=== PATIENT | female | born 1990 | race Caucasian/White ===

== ENCOUNTER 2022-06-27 09:25 | Inpatient (IN) | payer BC, SELFPAY ==
[2022-06-27] VITALS (17 sets, daily range): BP systolic 94–123; BP diastolic 41–80; PULSE 64–109; RESP 15–18; TEMP 36–36.7; O2SAT 96–100; BMI 36.2
--- NOTE | 2022-06-27 10:11 | PCM.HP.BLA ---
History and Physical Date of Admission: 06/27/22 HPI: The patient is a 32 year old female presenting for pre-operative visit. She is scheduled for , for previous c/s on 06/27/22. Procedure discussed along with risks, benefits and complications. Other alternatives discussed for management. Consent form signed? Yes. ? ? PAST MEDICAL HISTORY PAST MEDICAL HISTORY Diagnosis Date ? Hypoglycemia ? ? as a teenager-1 episode ? ? PAST SURGICAL HISTORY PAST SURGICAL HISTORY Procedure Laterality Date ? DELIVERY ONLY ? 10/28/2014 ? , low transversex2 ? MIRENA ? 04/16/2019 ? contraception-removed ? ? ? CURRENT MEDICATIONS Current Outpatient Medications Medication Sig Dispense Refill ? pyridoxine, vitamin B6, (VITAMIN B-6) 50 mg tablet Take 1 tablet by mouth twice daily. ? ? ? VIT/IRON FUMARATE/FA ( ORAL) Take by mouth. ? ? ? No current facility-administered medications for this visit. ? ? ALLERGIES: Patient has no known allergies. ? PERSONAL HISTORY: SOCIAL HISTORY Social History ? Tobacco Use ? Smoking status: Never ? Smokeless tobacco: Never Vaping Use ? Vaping Use: Never used Substance Use Topics ? Alcohol use: No ? Drug use: No ? FAMILY HISTORY: FAMILY HISTORY FAMILY HISTORY Problem Relation Age of Onset ? Lymphoma Mother ? ? Heart Failure Father ? ? other (toxemia) Sister ? ? Suicide / Suicidal Behaviors Brother ? ? Suicide / Suicidal Behaviors Brother ? ? other (lung issue) Maternal Grandmother ? ? Heart Failure Maternal Grandfather ? ? Diabetes Maternal Grandfather ? ? Diabetes Paternal Grandfather ? ? Heart Failure Paternal Grandfather ? ? No Known Problems Daughter ? ? No Known Problems Daughter ? ? ? REVIEW OF SYMPTOMS: GENERAL: denies fevers or chills ENDOCRINOLOGY: has not been on steroids Cardiology : denies palpitations or chest pain Respiratory: denies SOB or cough Hematology: denies history of prolonged bleeding or easy bruising or VTE Allergy: Denies history of personal or family history of allergy to anesthesia ? PHYSICAL EXAMINATION: ? VITALS: Blood pressure 110/64, weight 189 lb 6.4 oz (85.9 kg), last menstrual period 09/15/2021. ? GENERAL: The patient is well nourished, well hydrated in no acute distress. , The patient is oriented to time, place, and person. NECK: Supple. No lynphadenopathy, normal thyroid, no thyromegaly. LUNGS: Clear to auscultation bilaterally. no wheezes, rhonchi or rales HEART: Regular rate and rhythm, Normal heart sounds, and No murmurs or gallops abd- soft, nontender, gravid ? IMPRESSION: 32 YOF w/ Estimated Date of Delivery: 06/22/22 ? PLAN: The risks/benefits/alternatives and personal involved for the planned c/s were reviewed with the patient. Her questions were answered to her satisfaction and she desires to proceed. Consent was signed. I reviewed with her postop instructions and expectations. ? ? I have reviewed and updated past medical and surgical history, medications and allergies
[2022-06-27] MEDS: Acetaminophen 500 MG Tablet 1000 MG PO ×3 (10:16→23:38)
[2022-06-27 10:34] LABS: Absolute Lymphocyte Count 1.87 X10^3/uL (0.83-4.51); Absolute Neutrophil Count 8.9 X10^3/uL (2.0-7.7); Basophil# 0.06 X10^3/uL; Basophil% 0.5 % (0-1); Eosinophil# 0.07 X10^3/uL; Eosinophils% 0.6 % (0-5); Hematocrit 36.3 % (37-47); Hemoglobin 12.1 g/dL (12.0-15.0); Lymphocyte # 1.87 X10^3/ul (0.83-4.51); Lymphocyte % 15.3 % (19-41); Mean Corp Hgb Conc 33.3 g/dL (32-36); Mean Corpuscular Hgb 30.2 pg (27.0-32.0); Mean Corpuscular Volume 90.5 fL (81-99); Mean Platelet Vol. 10.1 fl (6.2-12.0); Monocyte# 0.89 X10^3/uL; Monocyte% 7.3 % (0-10); NRBC Flagged by Analyzer 0 % (0-5); Neutrophil # 8.89 X10^3/uL (2.7-7.7); Neutrophil % 72.5 % (47-70); Platelet Count 233 K/mm3 (150-450); RBC Distribution Width CV 12.6 % (11.6-14.6); RBC Distribution Width SD 41.2 fl (35.1-43.9); Red Blood Count 4.01 M/mm3 (4.2-5.4); White Blood Count 12.2 K/mm3 (4.4-11.0)
[2022-06-27] MEDS: Lactated Ringers 1,000 ML 999 ML IV (10:35)
[2022-06-27] MEDS: Lactated Ringers 1,000 ML 150 ML IV (11:15)
[2022-06-27] MEDS: Sodium Citrate/Citric Acid 30 ML UDC PO (12:00)
[2022-06-27] MEDS: Cefazolin 2 GM in 0.9% Normal Saline 100 ML IV (12:06)
--- NOTE | 2022-06-27 12:52 | EX.PCM.OBRPT ---
Assessment & Plan (1) 40 weeks gestation of : (2) Previous delivery affecting : Maternal Data Information Final STEPHANIE: 06/22/22 Gestational age: 40 5/7 Details Operative Information Date of Procedure: 06/27/22 Pre-Operative Diagnosis: previous c/s Post-Operative Diagnosis: same Indications for : Repeat Elective Classification: Scheduled Procedure Type: low transverse Type of Anesthesia: Spinal Anesthesiologist: Adalid Jacobson Special Medications: duramorph Antibiotic Given: Ancef 2 grams IV x1 Drain: Villalta to straight drain Estimated Blood Loss: 700 Fluids Replaced: 1500 Procedure Start Time: 12:28 Procedure Stop Time: 13:09 Time of Delivery: 12:30 Findings Description of Procedure: The patient was taken to the operating room. She was prepped and draped in the dorsal supine position with a leftward tilt. A Pfannenstiel skin incision was made approximately 2 cm above the symphysis pubis and carried through to underlying layer fascia with the scalpel. The fascia was incised incised in the midline and extended laterally with the Ny scissors. The fascia was dissected off the rectus muscles with blunt and sharp dissection. The rectus muscles were in the midline and the peritoneum was entered bluntly. The peritoneal incision was stretched and the bladder blade was placed. The uterine incision was made in a low transverse fashion with the scalpel and extended superiorly and inferiorly with blunt dissection. The amniotic membranes were ruptured bluntly and clear amniotic fluid returned. The 's head was brought to the incision in the flexed position and delivered without difficulty. The remainder of the infant was delivered with gentle traction and fundal pressure in the standard fashion. The mouth and nares were bulb suctioned. The cord was clamped and cut as the was stimulated. Cord clamping was delayed. The was handed off to the waiting nursing staff. The placenta was delivered with fundal massage and gentle traction in the standard fashion. The uterus was exteriorized and cleared of all clots and debris. The cervix was dilated with a ring forcep. The uterine incision was closed with #1 Vicryl in a running locked fashion. A second layer of the same suture was used in an imbricating fashion. The incision was examined and was found to be hemostatic. The uterus was placed back into the peritoneal cavity and hemostasis was again confirmed. The rectus muscles were examined and any bleeding was Bovie cauterized. The parietal peritoneum and rectus muscles were closed en bloc with an 0 Vicryl running suture. The surgical teams outer gloves were then changed. The rectus fascia was examined and any bleeding was Bovie cauterized and the rectus fascia was closed with 1 Vicryl suture in a running standard fashion. The subcutaneous tissue was examining and any bleeding was Bovie cauterized. The subcutaneous tissue was reapproximated with 3-0 Vicryl suture. The skin was closed in a subcuticular fashion by the ALTERATIONS WORKROOM CLERK with me present in the labor and delivery suite. I performed the remainder of the procedure with assistance. All sponge, lap, and needle counts were correct. The patient was taken to her room for recovery in a stable condition. Presentation: Positive for Vertex Amniotic Membrane Rupture Type: Artificial Amniotic Fluid Description: Clear Placental Delivery Description: Expressed Placenta Disposition: [facility] Cord Vessel Description: 3 Vessels Cord Entanglement: None Infant A Gender: Male (1 minute): 9 (5 minute): 9 Delayed Cord Clamping: Yes Complications Complications: none Admit VTE Documentation VTE Present on Admission: No VTE Mechan Device Prophylaxis: SCD's VTE Pharm Prophylaxis Ordered: No Reason Prophylaxis Not Ordered: Procedure Not Indicated
[2022-06-27] MEDS: Oxytocin 15 Units/NS 250ml 15 UNITS/250 ML IV.SOLN 83 UNITS IV (13:35)
[2022-06-27] MEDS: Ketorolac 30 MG/ML Syringe IV ×2 (13:35→19:16)
[2022-06-27] MEDS: Lactated Ringers 1,000 ML 100 ML IV (16:38)
[2022-06-27] MEDS: Ondansetron 4 MG/2 ML Vial IV ×2 (17:05→20:55)
[2022-06-28] MEDS: 0.9% Saline Lock 10 ML Syringe IV (01:26)
[2022-06-28] MEDS: Ketorolac 30 MG/ML Syringe IV ×2 (01:27→07:41)
[2022-06-28 01:30] VITALS: PULSE 68; RESP 15; O2SAT 100
[2022-06-28 03:07] VITALS: BP 95/64; PULSE 63; RESP 15; TEMP 36.4; O2SAT 99
[2022-06-28 04:56] LABS: Hematocrit 31.9 % (37-47); Hemoglobin 10.5 g/dL (12.0-15.0); Mean Corp Hgb Conc 32.9 g/dL (32-36); Mean Corpuscular Volume 91.1 fL (81-99); Mean Platelet Vol. 10.2 fl (6.2-12.0); Platelet Count 216 K/mm3 (150-450); RBC Distribution Width CV 12.5 % (11.6-14.6); RBC Distribution Width SD 40.9 fl (35.1-43.9); White Blood Count 13.9 K/mm3 (4.4-11.0)
[2022-06-28] MEDS: Acetaminophen 500 MG Tablet 1000 MG PO ×3 (07:41→20:40)
--- NOTE | 2022-06-28 08:14 | PN_ITS ---
Subjective Subjective patient seen at bedside, doing well. Patient reports good pain control. lochia mild. reports no flatus yet. denies N/V , tolerating regular diet. ambulating. Objective Data Objective Data Vital Signs: Vital Signs Temp Pulse Resp BP Pulse Ox O2 Del Method 97.6 F L 63 15 95/64 99 Room Air 06/28/22 03:07 06/28/22 03:07 06/28/22 03:07 06/28/22 03:07 06/28/22 03:07 06/28/22 03:07 Oxygen Delivery Method Room Air Weight: 87 kg Body Mass Index (BMI) 36.2 Intake & Output: Intake and Output for Last 24 Hours 06/26/22 06/27/22 06/28/22 23:59 23:59 23:59 Intake Total 1425.95 / 1425.95 881.67 / 881.67 Output Total 1525 / 1525 500 / 500 Balance -99.05 / -99.05 381.67 / 381.67 Lab / Micro Data Result Diagrams: 06/28/22 04:40 Labs: Laboratory Results - last 24 hr 06/27/22 10:10: WBC 12.2 H, RBC 4.01 L, Hgb 12.1, Hct 36.3 L, MCV 90.5, MCH 30.2, MCHC 33.3, RDW Std Deviation 41.2, RDW Coeff of Víctor 12.6, Plt Count 233, MPV 10.1, Immature Gran % (Auto) 3.800 H, Neut % (Auto) 72.5 H, Lymph % (Auto) 15.3 L, [place] % (Auto) 7.3, Eos % (Auto) 0.6, Baso % (Auto) 0.5, Absolute Neuts (auto) 8.9 H, Absolute Lymphs (auto) 1.87, Nucleated RBC % 0 06/27/22 10:10: Blood Type O POSITIVE, Antibody Screen NEGATIVE 06/28/22 04:40: WBC 13.9 H, RBC 3.50 L, Hgb 10.5 L, Hct 31.9 L, MCV 91.1, MCH 30.0, MCHC 32.9, RDW Std Deviation 40.9, RDW Coeff of Vícotr 12.5, Plt Count 216, MPV 10.2 Physical Exam Const alert and oriented x3 General Appearance: cooperative HEENT normocephalic Neck General: normal visual inspection GI soft to palpation and non-distended GI Narrative: Fundus firm Extremity normal to inspection and no calf tenderness Skin no rashes or lesions noted Neuro oriented x3 and CN's II-XII intact bilaterally Psych mental status grossly normal Assessment & Plan Assessment/Plan (1) Previous delivery affecting : (2) Delivery by section: PLAN: Plan POD#1 , Doing well Routine care pain mgmt monitor VS ambulation
[2022-06-28 09:41] VITALS: BP 113/56; PULSE 72; RESP 16; TEMP 36.8; O2SAT 100
[2022-06-28] MEDS: Senna/Docusate Sodium 1 Tablet PO (10:14)
[2022-06-28 12:53] VITALS: BP 108/57; PULSE 69; RESP 16; TEMP 36.7; O2SAT 100
[2022-06-28] MEDS: Ibuprofen 600 MG Tablet PO ×2 (14:12→20:40)
[2022-06-28 15:22] VITALS: BP 116/54; PULSE 82; RESP 18; TEMP 36.9; O2SAT 98
[2022-06-28] MEDS: oxyCODONE 5 MG Tablet PO (19:43)
[2022-06-28 19:50] VITALS: BP 109/68; PULSE 83; RESP 17; TEMP 36.9
[2022-06-29 01:38] VITALS: BP 113/59; PULSE 70; RESP 17; TEMP 36.7
[2022-06-29] MEDS: Acetaminophen 500 MG Tablet 1000 MG PO ×2 (02:52→08:55)
[2022-06-29] MEDS: Ibuprofen 600 MG Tablet PO ×2 (02:52→08:55)
[2022-06-29] MEDS: oxyCODONE 5 MG Tablet PO ×2 (04:37→10:57)
[2022-06-29] MEDS: Senna/Docusate Sodium 1 Tablet PO (08:55)
[2022-06-29 08:58] VITALS: BP 124/73; PULSE 83; RESP 16; TEMP 37.3; O2SAT 98
--- NOTE | 2022-06-29 09:01 | PCM.PN.OB ---
Subjective Subjective Pain well controlled. Average lochia. Passing flatus but no bowel movement. Tolerating regular diet. Urinating without difficulty. Breast-feeding is going well per her report Objective Data Objective Data Vital Signs: Vital Signs Temp Pulse Resp BP Pulse Ox O2 Del Method 98.1 F 70 17 113/59 L 98 Room Air 06/29/22 01:38 06/29/22 01:38 06/29/22 01:38 06/29/22 01:38 06/28/22 15:22 06/28/22 15:22 Oxygen Delivery Method Room Air Weight: 87 kg Body Mass Index (BMI) 36.2 Intake & Output: Intake and Output for Last 24 Hours 06/27/22 06/28/22 06/29/22 23:59 23:59 23:59 Intake Total 1425.95 / 1425.95 881.67 / 881.67 Output Total 1525 / 1525 500 / 500 Balance -99.05 / -99.05 381.67 / 381.67 Lab / Micro Data Result Diagrams: 06/28/22 04:40 Physical Exam Const alert General Appearance: cooperative GI GI Narrative: soft, moderate distention, fundus firm, appropriately tender. Abdominal bandage clean dry and intact Assessment & Plan (1) Delivery by section: PLAN: day #2 status post repeat section. Patient and are doing well. Desires discharge home. Routine instructions and prescriptions given.
--- NOTE | 2022-06-29 09:02 | DS.PCM_ITS ---
Providers Date of Admission: 06/27/22 Primary Care Physician: Brittany Primary Care Phys Reason For Visit: REPEAT C SECTION Diagnosis Discharge Diagnosis (1) Delivery by section: Status: Acute Plan: day #2 status post repeat section. Patient and are doing well. Desires discharge home. Routine instructions and prescriptions given. Medications at Discharge Home Medications vits,calcium no.78-iron fumarate-folic acid 29 mg-1 mg tablet (Prenatab s FA) 1 tab PO DAILY 05/19/14 oxycodone 5 mg tablet 5 mg PO Q8H PRN severe pain 73 days #10 TABLETS 06/29/22 Hospital Course Operations - (Repeat low transverse section performed on 06/27/2022 without complication) Summary of Care Provided Hospital Course: 32-year-old female admitted for repeat section. This performed without difficulty and by day #2 she was ready for discharge with routine instructions. Weight / BMI Weight Weight: 87 kg Body Mass Index (BMI) 36.2 ABG / Lab / Microbiology Data Result Diagrams: 06/28/22 04:40 Meaningful Use Info Meaningful Use Diagnoses (Choose all that apply): None applicable Discharge Plan Admission Admit Date/Time: 06/27/22 09:25 Primary Reason for Your Visit: Repeat delivery Attending Provider: Bambi Franco Primary Care Provider: [place] Holcomb,Brittany Primary Discharge Orders/Prescriptions Prescriptions: New oxycodone 5 MG tablet 5 mg PO Q8H PRN (Reason: severe pain) 73 Days Qty: 10 0RF Continued Prenatabs FA 1 TABLET tablet 1 tab PO DAILY Referrals / Follow Up: Care Physician,Brittany Primary [Primary Care Provider] - Disposition Disposition (needs filled in before D/C Order can be placed): Home, Self Care
== END 2022-06-29 11:35 | disposition home or self-care (01) | DRG 788 ==
PROVIDERS: Admitting Provider Obstetrics & Gynecology; Referring Provider Obstetrics & Gynecology; Visit Provider Obstetrics & Gynecology
PROC: 10D00Z1 Extraction of Products of Conception, Low, Open Approach (ICD-10-PCS; CPT 59514; principal; 2022-06-27 11:45)
DX: O34.211 Maternal care for low transverse scar from previous cesarean delivery (principal); Z37.0 Single live birth; Z3A.40 40 weeks gestation of pregnancy
CPT/HCPCS: 59025; 59050; 85025; 85027; 86850; 86900; 86901; 99218; 99251; J7120; A4216; G0378; G0463; J2405

== ENCOUNTER 2023-03-19 06:19 | Emergency (ER) | payer BC, SELFPAY ==
[2023-03-19 06:22] VITALS: BP 141/91; PULSE 119; RESP 18; TEMP 37.4; O2SAT 99; BMI 29.2
[2023-03-19 06:25] VITALS: BMI 29.2
--- NOTE | 2023-03-19 06:28 | ED.RN ---
dr barkley aware of pt's symptoms said he would be back to see pt.
[2023-03-19 06:53] LABS: Bedside Glucose 89 mg/dL (74-106)
--- NOTE | 2023-03-19 07:15 | CT_ITS ---
STUDY: CT BRAIN WITHOUT CONTRAST REASON FOR EXAM: Female, 33 years old. Headache, double vision RADIATION DOSAGE (If Supplied By Facility): CTDIvol = ( 44.99 ) mGy, DLP = ( 711.75 ) mGycm TECHNIQUE: Transaxial CT imaging of the brain was performed without administration of intravenous contrast material. Individualized dose optimization techniques were used for this CT. COMPARISON: No relevant priors. FINDINGS: Normal soft tissue structures. Normal calvarium. Normal size ventricles and extra-axial spaces for the patient''s age. Normal white matter tracts of the cerebral hemispheres. Normal basal ganglia and thalami. Normal brainstem. Normal cerebellum. There is no intracranial hemorrhage. There are no findings of an acute ischemic infarction. Normal visualized paranasal sinuses. CT/Brain/Head without Contrast IMPRESSION: Normal unenhanced CT scan of the brain. Electronically Signed: Marcelo Zapata MD at 8:14 EDT ,
[2023-03-19 07:32] LABS: Hematocrit 42.8 % (37-47); Hemoglobin 14.3 g/dL (12.0-15.0); Mean Corp Hgb Conc 33.4 g/dL (32-36); Mean Corpuscular Hgb 31.1 pg (27.0-32.0); Mean Platelet Vol. 9.1 fl (6.2-12.0); Platelet Count 412 K/mm3 (150-450); RBC Distribution Width CV 12.9 % (11.6-14.6); RBC Distribution Width SD 43.9 fl (35.1-43.9); White Blood Count 8.4 K/mm3 (4.4-11.0)
[2023-03-19] MEDS: 0.9% Normal Saline 1,000 ML 1000 ML IV (07:37)
[2023-03-19 07:43] VITALS: BP 122/75; PULSE 82; RESP 16; O2SAT 98
[2023-03-19 07:49] LABS: AST(SGOT) 13 U/L (15-37); Alanine Aminotransfer ALT/SGPT 23 U/L (13-56); Albumin, Serum 3.9 g/dL (3.2-5.0); Alkaline Phosphatase 98 U/L (45-117); Anion Gap 6 (5-15); BUN 21 mg/dL (7-18); BUN/Creat Ratio 17.5 RATIO (10-20); Calcium,Total 8.9 mg/dL (8.5-10.1); Chloride 109 mmol/L (98-107); EST Glomerular Filtration Rate 56 mL/min (>60); Est Glom Filt Rate - Afr Amer 67 mL/min (>60); Estimated Creatinine Clearance 51.26 ml/min; Globulin 3.8 g/dL (2.2-4.2); Glucose 93 mg/dL (74-106); Potassium 4.1 mmol/L (3.5-5.1); Protein, Total 7.7 g/dL (6.4-8.2); Sodium Level 137 mmol/L (136-145)
[2023-03-19 08:58] VITALS: BP 122/77; PULSE 91; RESP 16; O2SAT 99
--- NOTE | 2023-03-19 09:20 | EX.ED.DYSGE1 ---
HPI History of Present Illness Chief Complaint: Neuro S/Sx Narrative Narrative: Patient is a 33-year-old female who woke up with vision changes this morning, mild bilateral frontal headache, fatigue, myalgias and not feeling well. 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 No other strokelike signs or symptoms. Patient is complaining of double vision. Patient believes it is initially coming from both eyes. Patient has mild headache, bifrontal. Patient's headache was not the worse headache of her life, not sudden onset, not thunderclap in nature. Patient feels like she might be slightly dehydrated. Patient was due to be working today, she did not go to work today. is at bedside. Patient has no chest pain or shortness of breath. Patient has minimal nausea. Patient states that she is not , she has an IUD. No urinary, no bowel or bladder changes, no other acute complaints. Patient does not wear glasses or contacts. Patient has no idea when the last time she went to see an eye doctor. PFSH PFS Home Medications NK 03/19/23 [History Last Taken Unknown] Allergy/AdvReac Type Severity Reaction Status Date / Time No Known Allergies Allergy Verified 03/19/23 06:20 Surgical History (Updated 07/07/22 @ 00:02 by Background Daemon) Previous delivery affecting Previous section Social History Smoking Status: Never smoker ROS ROS ED ROS Narrative REVIEW OF SYSTEMS: Unless otherwise stated in this report the patient's positive and negative responses for review of systems for constitutional, eyes, ENT, cardiovascular, respiratory, gastrointestinal, neurological, , musculoskeletal, and integument systems and related systems to the presenting problem are either stated in the history of present illness or were not pertinent or were negative for the symptoms and/or complaints related to the presenting medical problem. EXAM Physical Exam Narrative Exam Narrative: Vital signs reviewed and patient is not hypoxic. General: The patient appears well and in no apparent distress. Patient is resting comfortably on cart. Not toxic, lethargic, or listless. Skin: Warm, dry, no pallor noted. There is no rash noted. Head: Normocephalic, atraumatic Eye: Normal conjunctiva, no drainage, EOMI. PERRL. Pupils are 4/2, equal, bilateral. When covering my hand over patient's left and right eye individually, it is noted that patient is only having double vision from her right eye, not her left. It does appear to be in all hardwick of the right eye. No double vision, blurred vision, or vision changes from the left eye. Patient has no loss of vision. No pain in either eye. Equal ocular motion with no difficulty or pain. Ears, Nose, Mouth, and Throat: oral mucosa is moist. Nares patent. Mouth without vesicles. Cardiovascular: Regular Rate and Rhythm, no murmurs, gallops, or rubs Respiratory: Patient is in no distress, no accessory muscle use, lungs are clear to auscultation, no wheezing, rales or rhonchi Back: non-tender, no CVA tenderness bilaterally to percussion. NO CTLS midline or paraspinal tenderness to palpation. GI: Soft, no tenderness to palpation, no masses appreciated. No rebound, guarding, or rigidity noted. Musculoskeletal: The patient has full range of motion of all extremities and joints with no difficulty. Patient has no motor, no sensory deficits. Neurological: A&O x4, normal speech, no focal neurological deficits. Psychiatric: Cooperative Const Vital Signs: 03/19/23 06:22 03/19/23 07:43 03/19/23 08:58 Temperature 99.4 F H Temperature Source Temporal Pulse Rate 119 H 82 91 Respiratory Rate 18 16 16 Blood Pressure 141/91 H 122/75 H 122/77 H Blood Pressure Mean 107 90 92 Pulse Ox 99 98 99 Oxygen Delivery Method Room Air Room Air 03/19/23 09:22 Temperature 98.4 F Temperature Source Pulse Rate 76 Respiratory Rate 14 Blood Pressure 126/76 H Blood Pressure Mean Pulse Ox 99 Oxygen Delivery Method MDM MDM MDM Narrative Medical decision making narrative: CT of the brain showed no acute findings. Patient's eye exam was reassessed at discharge. Her eye exam varies. At discharge, patient will intermittently have double vision to the right lower quadrant and the left upper quadrant of the right eye, then I compare it to the left eye which is normal, and then I rechecked the right eye again, and it is normal. Patient's exam is inconsistent as far as minimal blurred vision versus double vision to the right eye. Patient feels safe going home. Patient's headache and symptoms feel much better with IV medication and IV fluids given. Patient will call her 's eye physician tomorrow. Patient was also given the on-call eye physician's name and number for follow-up. No questions at discharge. See visual acuity that was done as well. Lab Data Attestation: I reviewed the patient's lab results. Labs: Laboratory Results - last 24 hr 03/19/23 03/19/23 06:30 06:33 WBC 8.4 RBC 4.60 Hgb 14.3 Hct 42.8 MCV 93.0 MCH 31.1 MCHC 33.4 RDW Std Deviation 43.9 RDW Coeff of Víctor 12.9 Plt Count 412 MPV 9.1 Sodium 137 Potassium 4.1 Chloride 109 H Carbon Dioxide 22.0 Anion Gap 6 BUN 21 H Creatinine 1.20 H Estim Creat Clear Calc 51.26 Est GFR (MDRD) Af Amer 67 Est GFR (MDRD) Non-Af 56 L BUN/Creatinine Ratio 17.5 Glucose 93 Calcium 8.9 Total Bilirubin 0.50 AST 13 L ALT 23 Alkaline Phosphatase 98 Total Protein 7.7 Albumin 3.9 Globulin 3.8 Albumin/Globulin Ratio 1.0 POC Glucose 89 Radiography Diagnostic Testing: Clinical Impression(s) from Imaging Studies Brain CT 03/19/23 07:15 IMPRESSION: Normal unenhanced CT scan of the brain. Electronically Signed: Marcelo Zapata MD at 8:14 EDT , Discharge Plan Triage Chief Complaint: Neuro S/Sx ED Provider: Deuce Acuna Dx/Rx/DC Orders Clinical Impression: Visual changes, Headache, Dehydration, mild Instructions: Understanding Vision Problems, ED Dehydration (Adult), ED Rebound Headache Prescriptions: No Action NK Stand Alone Forms: ED Work / School Excuse Primary Care Provider: Care Physician,No Primary Referrals: Herson Barger MD [Med Staff - Active Staff] - Care Physician,No Primary [Primary Care Provider] - Activity Restrictions/Additional Instructions: Call your 's eye doctor tomorrow to make an appointment for tomorrow. On-call coordinate measuring machine technician information has been given to you as well. You must follow-up with eye physician for complete eye evaluation. You may also go to [facility], [facility], or any other eye physician. Disposition Disposition: Home, Self Care Discharge Date/Time: 03/19/23 09:27
[2023-03-19 09:22] VITALS: BP 126/76; PULSE 76; RESP 14; TEMP 36.9; O2SAT 99
== END 2023-03-19 09:27 | disposition home or self-care (01) ==
PROVIDERS: Emergency Provider Emergency Medicine; Visit Provider Emergency Medicine
DX: H53.9 Unspecified visual disturbance (principal); E86.0 Dehydration; R51.9 Headache, unspecified; R11.0 Nausea; Z97.5 Presence of (intrauterine) contraceptive device
CPT/HCPCS: 70450; 80053; 82962; 85027; 99284; A4216

== ENCOUNTER → 2023-03-21 | Outpatient (CLI) | payer BC, SELFPAY ==
--- NOTE | 2023-03-21 09:20 | MRI_ITS ---
STUDY: MRI BRAIN AND ORBITS WITH AND WITHOUT CONTRAST REASON FOR EXAM: Female, 33 years old. SUDDEN ONSET DIPLOPIA TECHNIQUE: Standardized fat and water weighted pulse sequences were obtained in all 3 orthogonal planes, pre-and post contrast administration. IV 14 CC CLARISCAN was administered for the contrast portion of the examination. COMPARISON: None. FINDINGS: Normal bilateral globes. Normal bilateral optic nerve sheath complexes and optic nerves. Normal bilateral intraconal and extraconal spaces. Normal bilateral extraocular muscles. Normal optic chiasm and post-chiasmatic tracts. Normal sella turcica, pituitary gland, infundibular stalk, and hypothalamus. Normal bilateral cavernous sinuses. Normal tectal plate and pineal gland. Normal flow voids within the major intracranial circulation suggesting patency by spin echo criteria. Normal size of the ventricles and extra-axial spaces for the patient''s age. Normal white matter tracts of the supratentorial brain. Normal bilateral basal ganglia. Normal thalami. There is no extra-axial fluid accumulation. Normal midbrain, isaias and medulla. Normal cerebellum. Normal basal cisterns. MRI/Brain W/WO Contrast IMPRESSION: Normal enhanced and unenhanced MRI of the brain and orbits. Electronically Signed: Lamont Cooney MD at 12:11 EDT ,
== END | disposition home or self-care (01) ==
PROVIDERS: PCP Family Medicine; Referring Provider Ophthalmology; Visit Provider Ophthalmology
DX: H53.2 Diplopia (principal)
CPT/HCPCS: 70553; A9575

== ENCOUNTER 2024-03-26 18:11 | Outpatient (RCR) | payer SELFPAY | END 2024-03-30 23:59 | LOC: EMPH 18:11 | PROVIDERS: PCP Family Medicine; Visit Provider Family Medicine Geriatric Medicine | DX: Z03.818 Encounter for observation for suspected exposure to other biological agents ruled out (principal) | CPT/HCPCS: 87811 ==

== ENCOUNTER → 2024-09-03 | Outpatient (CLI) | payer BC, SELFPAY ==
--- NOTE | 2024-09-03 09:46 | STE_ITS ---
Reason For Study: CHEST PAIN Stress Results Protocol: KATLIN Maximum Predicted HR: 188 bpm Target HR: 160 bpm % Maximum Predicted HR: 96 % DurationHeart Rate Stage (mm:ss) (bpm) BP Comment BASELINE 93 118/ STAGE 1 3:00 134 140/82 STAGE 2 3:00 160 142/68 STAGE 3 3:00 169 144/66 STAGE 4 0:30 181 / NO CHEST PAIN RECOVERY 111 146/82 Stress Duration: 9:30 mm:ss Maximum Stress HR: 181 bpm Baseline Echocardiogram Findings Stress Echo Wall motion Data Resting WM Intermediate WM Stress WM ECHO/Stress Test Echo w/o Contrast Interpretation Summary Exercise stress echo. 34-year-old lady with a history of chest pain. Resting EKG demonstrates normal sinus rhythm with a rate of 90 bpm normal inter vals are noted resting blood pressure is 118/82. The patient exercised according to the regula r Katlin protocol for total duration of 9-1/2 minutes. The maximum heart rate attained was 196 bpm wh ich was 104% of max impacted heart rate the maximum workload0 was 11.6 metabolic equivalents. At re st there were no ST or T wave changes noted suggest ischemia and at peak exercise upsloping ST lopez ges were noted we did not meet the criteria for ischemia. No clinical angina was noted the test was t erminated due to the target heart rate being achieved. The peak blood pressure is 150/82 with a rate -pressure product of 25,300. Stress echocardiogram. Resting echocardiogram demonstrated preserved resting left ventricular ejection fraction of 60% with no wall motion abnormalities present. The stress echocardiogram demonstrated au gmentation of all dasilva reduction of the ventricular cavity size peaking of ejection fraction of 70 to 75% with no wall motion abnormalities present. Conclusion: Exercise stress echocardiogram with no evidence of ischemia at a high workload. Good functional capacity. Ordering Physician: Alexy Waters Referring Physician: Alexy Waters Performed By: Alistair Banks RCS
== END | disposition home or self-care (01) ==
LOC: CVS 09:45
PROVIDERS: PCP Family Medicine; Referring Provider Internal Medicine Cardiovascular Disease; Visit Provider Internal Medicine Cardiovascular Disease
DX: R07.9 Chest pain, unspecified (principal)
CPT/HCPCS: 93017; 93350

== ENCOUNTER → 2024-09-07 | Outpatient (CLI) | payer BC, SELFPAY ==
[2024-09-07 10:04] LABS: Cholesterol 301 mg/dL (200); High Density Lipoprotein 45 mg/dL; Triglycerides 82 mg/dL; Very Low Density Lipoprotein 16 mg/dL (5-40)
[2024-09-09 16:07] LABS: Lipoprotein A 61.8 nmol/L (<75.0)
== END | disposition home or self-care (01) ==
LOC: LAB 08:58
PROVIDERS: PCP Family Medicine; Referring Provider Internal Medicine Cardiovascular Disease; Visit Provider Internal Medicine Cardiovascular Disease
DX: R07.9 Chest pain, unspecified (principal); E78.5 Hyperlipidemia, unspecified
CPT/HCPCS: 36415; 80061; 83695

== ENCOUNTER → 2024-09-09 | Outpatient (CLI) | payer BC, SELFPAY ==
--- NOTE | 2024-09-09 07:22 | CT_ITS ---
PROCEDURE: LIMITED CHEST CT CARDIAC ONLY; CARDIAC CALCIUM SCORING REASON FOR EXAM: Chest pain. COMPARISON: None. TECHNIQUE: CT examination through the coronary arteries without intravenous contrast. Screening examination for the purpose of establishing a computer generated calcium score. COMPARISON STUDY: None. FINDINGS: CALCIUM SCORING RESULTS (Volume / Agatston): LEFT MAIN: 0 / 0 RCA: 0 / 0 LAD: 0 / 0 CIRCUMFLEX: 0 / 0 PDA: 0 / 0 Total: 0 / 0 Patient Age: 34 Percentile: 0 CA Threshold: 130HU Reference: Jayy Kaur al., [facility], 2001 ([facility], [id number] patients) Limited examination the chest documents no evidence of pulmonary mass, adenopathy, infiltrate, or effusion. Please note, this screening examination covers only a limited portion of the chest. CT/Limited Chest CT Cardiac Only IMPRESSION: Coronary artery calcium score of 0. This also represents an age adjusted perce ntile of 0%. One or more dose reduction techniques were used (e.g., Automated exposure contr ol, adjustment of the mA and/or kV according to patient size, use of iterative reconstruction technique). Reading Location: [id number]
--- NOTE | 2024-09-09 07:22 | CT_ITS ---
PROCEDURE: LIMITED CHEST CT CARDIAC ONLY; CARDIAC CALCIUM SCORING REASON FOR EXAM: Chest pain. COMPARISON: None. TECHNIQUE: CT examination through the coronary arteries without intravenous contrast. Screening examination for the purpose of establishing a computer generated calcium score. COMPARISON STUDY: None. FINDINGS: CALCIUM SCORING RESULTS (Volume / Agatston): LEFT MAIN: 0 / 0 RCA: 0 / 0 LAD: 0 / 0 CIRCUMFLEX: 0 / 0 PDA: 0 / 0 Total: 0 / 0 Patient Age: 34 Percentile: 0 CA Threshold: 130HU Reference: Jayy Kaur al., [facility], 2001 ([facility], [id number] patients) Limited examination the chest documents no evidence of pulmonary mass, adenopathy, infiltrate, or effusion. Please note, this screening examination covers only a limited portion of the chest. CT/Cardiac Calcium Scoring IMPRESSION: Coronary artery calcium score of 0. This also represents an age adjusted perce ntile of 0%. One or more dose reduction techniques were used (e.g., Automated exposure contr ol, adjustment of the mA and/or kV according to patient size, use of iterative reconstruction technique). Reading Location: [id number]
[2024-09-09 07:51] LABS: Internal QC Validated? YES +Cl - CLEAR BKGD; Pregnancy, Urine Negative Negative
--- NOTE | 2024-09-09 08:28 | CA.SCORE ---
Calcium Scoring Date of Study:: 09/09/24 Indications Indications: Chest pain family history Coronary Calcium Scoring: High-resolution Computed Tomographic imaging of the chest was performed on [09/09/2024], with particular attention paid to the coronary arteries. Images from the examination were analyzed for the presence and extent of coronary artery calcification , using coronary calcium quantification software. The patient tolerated the procedure well and there were no complications. The results of the coronary calcification analysis are provided below. Findings Coronary Artery Left Main (LM): 0 Left Anterior Descending (LAD): 0 Left Circumflex (LCX): 0 Right Coronary Artery (RCA): 0 Total Agatston Score: 0 Percentile Rankin% Calcium Scoring Interpretation: Different methods to categorize the overall amount of coronary plaque. Overall amount CAC SIS Visual of coronary plaque P1 Mild -100 <2 1-2 vessels with mild amount of plaque P2 Moderate 101-300 3-4 1-2 vessels with moderate amount, 3 vessels with mild amount of plaque P3 Severe 301-999 5-7 3 vessels with moderate amount, 1 vessel with severe amount of plaque P4 Extensive >1000 >8 2-3 vessels with severe amount of plaque Conclusion: No atherosclerotic plaque noted.
== END | disposition home or self-care (01) ==
PROVIDERS: PCP Family Medicine; Referring Provider Internal Medicine Cardiovascular Disease; Visit Provider Internal Medicine Cardiovascular Disease
DX: R07.9 Chest pain, unspecified (principal)
CPT/HCPCS: 75571; 76380; 81025

== ENCOUNTER → 2025-07-08 | Outpatient (CLI) | payer BC, SELFPAY ==
[2025-07-08 10:51] LABS: Hematocrit 40.7 % (37-47); Hemoglobin 13.4 g/dL (12.0-15.0); Immature Granulocytes Count 0.040 X10^3/uL (0.0-0.0); Mean Corp Hgb Conc 32.9 g/dL (32-36); Mean Corpuscular Volume 93.3 fL (81-99); Mean Platelet Vol. 9.4 fl (6.2-12.0); NRBC Flagged by Analyzer 0 % (0-5); Platelet Count 324 K/mm3 (150-450); RBC Distribution Width CV 12.0 % (11.6-14.6); RBC Distribution Width SD 41.7 fl (35.1-43.9); Red Blood Count 4.36 M/mm3 (4.2-5.4); White Blood Count 6.9 K/mm3 (4.4-11.0)
[2025-07-08 11:13] LABS: hCG Titer Quant., Serum 6 mIU/mL (<9 non-preg)
== END | disposition home or self-care (01) ==
LOC: LAB 09:11
PROVIDERS: PCP Family Medicine; Referring Provider Nurse Practitioner Women's Health; Visit Provider Nurse Practitioner Women's Health
DX: O02.1 Missed abortion (principal); R53.83 Other fatigue
CPT/HCPCS: 36415; 84702; 85025

== ENCOUNTER → 2025-07-10 | Outpatient (CLI) | payer BC, SELFPAY ==
--- NOTE | 2025-07-10 14:28 | US_ITS ---
PROCEDURE: PELVIC W/ TRANSVAGINAL 07/10/2025 REASON FOR EXAM: Abnormal bleeding. Miscarriage in April. TECHNIQUE: Procedure Code: [id number] Modality: US Procedure: PELVIC W/ TRANSVAGINAL COMPARISON: 05/01/2025 FINDINGS: ENDOMETRIUM: Homogeneous. Normal thickness of 3.0 mm. UTERUS: Normal size and contour measuring 11.0 x 5.5 x 4.5 cm. Region of multiple dilated myometrial vessels with turbulent flow in the anterior body/lower uterine segment. No intrauterine identified. No fibroid detected. CERVIX: Normal size and contour. RIGHT OVARY: Normal size and appearance measuring 3.6 x 2.8 x 1.7 cm (volume 8.9 mL). Normal follicles. Normal blood flow. No adnexal mass. LEFT OVARY: Normal size and appearance measuring 2.5 x 1.7 x 1.0 cm (volume 2.3 mL). Normal follicles. Normal blood flow. No adnexal mass. FREE FLUID: No free fluid. 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 Reading Location: [id number]
== END | disposition home or self-care (01) ==
LOC: US 14:26
PROVIDERS: PCP Family Medicine; Referring Provider Nurse Practitioner Women's Health; Visit Provider Nurse Practitioner Women's Health
DX: N93.9 Abnormal uterine and vaginal bleeding, unspecified (principal)
CPT/HCPCS: 76830; 76856

== ENCOUNTER → 2025-07-21 | Outpatient (CLI) | payer BC, SELFPAY ==
[2025-07-21 14:36] LABS: hCG Titer Quant., Serum < 1 mIU/mL (<9 non-preg)
== END | disposition home or self-care (01) ==
LOC: LAB 13:29
PROVIDERS: PCP Family Medicine; Referring Provider Nurse Practitioner Women's Health; Visit Provider Nurse Practitioner Women's Health
DX: N93.9 Abnormal uterine and vaginal bleeding, unspecified (principal)
CPT/HCPCS: 36415; 84702